=== PATIENT | male | born 1995 | race Caucasian/White ===

== ENCOUNTER 2016-09-12 20:36 | Emergency (ER) | payer OTHER ==
[~2016-09-12] VITALS: Ht 190.5 cm; Wt 75.0 kg
[~2016-09-12 20:36] MED LIST: AMOXICILLIN500 MG PO; AUGMENTIN875 MG PO; CLARITIN10 MG PO; CLEOCIN300 MG PO; FLEXERIL10 MG PO; NAPROSYN500 MG PO; NOHOMEMEDS; PERCOCET 5/31 TABLET PO
[2016-09-12] MEDS ORDERED: NORCO 5/3251 TABLET PO (21:35)
[2016-09-12] MEDS ORDERED: PEN-VEE K,VEET500 MG PO (21:35)
[2016-09-12 22:09] VITALS: BP 148/82
== END 2016-09-12 22:10 | disposition home or self-care (01) ==
LOC: EXP 20:36 → EME 20:36 → EXP 22:10
DX: K04.7 Periapical abscess without sinus (principal); F17.200 Nicotine dependence, unspecified, uncomplicated
CPT/HCPCS: 99281; 99283

== ENCOUNTER 2016-10-11 20:54 | Emergency (ER) | payer OTHER ==
[~2016-10-11] VITALS: Ht 190.5 cm; Wt 74.5 kg
[~2016-10-11 20:54] MED LIST changes: +NORCO 5/3251 TABLET PO; +PEN-VEE K,VEET500 MG PO
[2016-10-11 21:28] LABS: HEMATOCRIT 42.5 % (38.0-50.0); MCH 30.6 PG (29.0-34.0); MCHC 33.9 G/DL (30.0-36.0); MCV 90.4 FL (86-99); MEAN PLAT.VOLUME 8.8 uM^3 (9.0-12.4); PLATELET COUNT 284 K/uL (156-360); RBC DIS.WIDTH-CV 15.1 % (11.8-14.6); RBC DIS.WIDTH-SD 49.8 % (39-53); WHITE BLOOD COUNT 8.1 K/uL (4.1-10.2)
[2016-10-11 21:42] LABS: CHLORIDE 105 mEq/L (99-109); POTASSIUM 3.3 mEq/L (3.7-5.4); SODIUM 140 mEq/L (136-147)
[2016-10-11 21:44] LABS: GLUCOSE 110 mg/dL (70-99)
[2016-10-11 21:45] LABS: ANION GAP 8 MEQ/L (2-14)
[2016-10-11 21:46] LABS: TOTAL BILIRUBIN 7.8 mg/dL (0.0-1.0)
[2016-10-11 21:48] LABS: ALKALINE PHOSPHATASE 209 IU/L (3-129); GFR ESTIMATE (CALCULATED) > 59 mL/min/
[2016-10-11 21:49] LABS: UREA NITROGEN (BUN) 5 mg/dL (9-23)
[2016-10-11 21:50] LABS: DIRECT BILIRUBIN 6.2 mg/dL (0.0-0.3)
[2016-10-11 22:45] LABS: LIPASE 18 U/L (1.0-51.0)
[2016-10-11 23:12] LABS: INTERNAL CONTROL VALID? YES; MONOSPOT (MONONUCLEOSIS SEROL) NEGATIVE
[2016-10-11 23:28] LABS: ADD MIUA? YES; BILIRUBIN MODERATE; BLOOD MODERATE; COLOR AMBER ((YELLOW)); GLUCOSE (STRIP) NEGATIVE; KETONES NEGATIVE; LEUKOCYTES NEGATIVE; NITRITE NEGATIVE; PROTEIN (STRIP) NEGATIVE; SPECIFIC GRAVITY 1.021 (1.000-1.030)
[2016-10-11 23:40] LABS: BACTERIA NONE SEEN /HPF; EPITHELIAL CELLS RARE /HPF; MUCUS TRACE /LPF; RED BLOOD CELLS 15-20 /HPF (0-5); UCUL ADDED? NO
[2016-10-11] MEDS ORDERED: ZOFRAN4 MG PO (23:46)
[2016-10-11] MEDS ORDERED: OXAYDO5 MG PO (23:46)
[2016-10-11 23:49] LABS: ICTOTEST POSITIVE
[2016-10-12 00:03] LABS: INTER. NORMALIZED RATIO 1.2; PROTHROMBIN TIME 11.9 (9.2-11.2)
[2016-10-12 00:07] VITALS: BP 121/68
[2016-10-12 01:21] LABS: IRON 217 MCG/DL (35-150)
[2016-10-12 11:04] LABS: FERRITIN 1652 NG/ML (22-322)
[2016-10-14 18:22] LABS: Cytomegalovirus IgG Antibody+ <0.60 U/mL (<0.60); Cytomegalovirus IgM Antibody+ <30.00 AU/mL (<30.00)
== END 2016-10-12 00:12 | disposition home or self-care (01) ==
LOC: EME 20:54
DX: B17.9 Acute viral hepatitis, unspecified (principal); R17 Unspecified jaundice; F17.200 Nicotine dependence, unspecified, uncomplicated
CPT/HCPCS: 76705; 80053; 80074; 81003; 82248; 82390; 82728; 83540; 83690; 85027; 85610; 85730; 86308; 86644 90; 86645 90; 99281; 99285; G0480

== ENCOUNTER 2017-07-26 13:28 | Emergency (ER) | payer OTHER ==
[~2017-07-26] VITALS: Ht 190.5 cm; Wt 74.4 kg
[~2017-07-26 13:28] MED LIST changes: +OXAYDO5 MG PO; +ZOFRAN4 MG PO
[2017-07-26 15:13] LABS: HEMATOCRIT 46.9 % (38.0-50.0); HEMOGLOBIN 16.2 G/DL (12.5-16.6); MCH 31.8 PG (29.0-34.0); MCHC 34.5 G/DL (30.0-36.0); MCV 92.1 FL (86-99); PLATELET COUNT 324 K/uL (156-360); RBC DIS.WIDTH-CV 13.2 % (11.8-14.6); RBC DIS.WIDTH-SD 44.9 % (39-53); RED BLOOD COUNT 5.09 M/uL (4.00-5.50); WHITE BLOOD COUNT 7.8 K/uL (4.1-10.2)
[2017-07-26 15:54] LABS: ALBUMIN 4.3 G/DL (3.2-4.8); CHLORIDE 105 MEQ/L (99-109); POTASSIUM 4.3 MEQ/L (3.7-5.4); SODIUM 138 MEQ/L (136-147); TOTAL BILIRUBIN 0.4 MG/DL (0.0-1.0)
[2017-07-26 16:11] LABS: ALKALINE PHOSPHATASE 177 IU/L (3-129); AST (GOT) 168 IU/L (2-34); CREATININE 0.7 MG/DL (0.6-1.3); GFR ESTIMATE (CALCULATED) > 59 mL/min/ (58.99-99999); GLUCOSE 114 mg/dL (70-99); TOTAL PROTEIN 7.4 G/DL (6.4-8.3); UREA NITROGEN (BUN) 10 mg/dL (9-23)
[2017-07-26 16:24] LABS: ALT (GPT) 526 IU/L (3-49)
[2017-07-26 17:12] LABS: APPEARANCE CLOUDY ((CLEAR)); BILIRUBIN NEGATIVE; BLOOD NEGATIVE; COLOR YELLOW ((YELLOW)); GLUCOSE (STRIP) NEGATIVE; KETONES NEGATIVE; LEUKOCYTES NEGATIVE; NITRITE NEGATIVE; PROTEIN (STRIP) NEGATIVE; SPECIFIC GRAVITY 1.017 (1.000-1.030); UROBILINOGEN 0.2 MG/DL (0.2-1.0)
[2017-07-26] MEDS ORDERED: FLOMAX0.4 MG PO (17:18)
[2017-07-26] MEDS ORDERED: MOTRIN800 MG PO (17:18)
[2017-07-26] MEDS ORDERED: ZOFRAN ODT4 MG PO (17:18)
[2017-07-26 17:21] LABS: AMPHETAMINE NEGATIVE (500 ng/mL); BARBITURATES NEGATIVE (200 ng/mL); BENZODIAZEPINES NEGATIVE (150 ng/mL); BUPRENORPHINE NEGATIVE (10 ng/mL); COCAINE PRESUMPTIVE POSITIVE (150 ng/mL); METHADONE NEGATIVE (200 ng/mL); METHAMPHETAMINE NEGATIVE (500 ng/mL); OPIATES (MORPHINE) NEGATIVE (100 ng/mL); OXYCODONE PRESUMPTIVE POSITIVE (100 ng/mL); PHENCYCLIDINE NEGATIVE (25 ng/mL); PROPOXYPHENE NEGATIVE (300 ng/mL); THC CANNABINOIDS PRESUMPTIVE POSITIVE (50 ng/mL); TRICYCLIC ANTIDEPRESSANTS NEGATIVE (300 ng/mL)
[2017-07-26 17:40] LABS: LIPASE 25 U/L (1.0-51.0)
[2017-07-26 18:04] LABS: AMORPHOUS PHOSPHATE CRYSTALS 3+; BACTERIA NONE SEEN /HPF; EPITHELIAL CELLS NONE SEEN /HPF; MUCUS NONE SEEN /LPF; RED BLOOD CELLS NONE SEEN /HPF (0-5); UCUL ADDED? NO; WHITE BLOOD CELLS NONE SEEN /HPF (0-5)
[2017-07-26 18:28] VITALS: BP 132/68
== END 2017-07-26 18:29 | disposition home or self-care (01) ==
LOC: EME 13:28
PROVIDERS: Nurse Practitioner Family
DX: N20.0 Calculus of kidney (principal); F14.10 Cocaine abuse, uncomplicated; B19.20 Unspecified viral hepatitis C without hepatic coma; F17.200 Nicotine dependence, unspecified, uncomplicated; Z87.442 Personal history of urinary calculi; Z88.5 Allergy status to narcotic agent
CPT/HCPCS: 74176; 80053; 81003; 83690; 84999; 85027; 99281; 99284; J1885

== ENCOUNTER 2017-12-19 14:01 | Emergency (ER) | payer OTHER ==
[~2017-12-19] VITALS: Ht 190.5 cm; Wt 77.3 kg
[~2017-12-19 14:01] MED LIST changes: +FLOMAX0.4 MG PO; +MOTRIN800 MG PO; +ZOFRAN ODT4 MG PO
[2017-12-19] MEDS ORDERED: PEN-VEE K,VEET500 MG PO (15:49)
[2017-12-19] MEDS ORDERED: PERIDEX473 ML MM (15:49)
[2017-12-19] MEDS ORDERED: MOTRIN800 MG PO (15:49)
[2017-12-19 16:00] VITALS: BP 122/75
== END 2017-12-19 16:03 | disposition home or self-care (01) ==
LOC: EME 14:01
DX: K02.9 Dental caries, unspecified (principal); Z88.5 Allergy status to narcotic agent
CPT/HCPCS: 99281; 99283